=== PATIENT | male | born 1975 | race Caucasian/White ===

== ENCOUNTER 2017-09-11 05:33 | Emergency (ER) | payer MEDICAID ==
[2017-09-11] MEDS: HYDROCODONE/APAP (5/325) TAB PO (06:40)
== END 2017-09-11 08:11 | disposition home or self-care (01) ==
LOC: FTE 05:33
DX: M54.5 Low back pain (principal)
CPT/HCPCS: 72100; 99283-25

== ENCOUNTER 2019-03-05 07:00 | Emergency (ER) | payer MEDICAID ==
[2019-03-05] MEDS: FLUORESCEIN STRIP BOTH EYES (07:39)
[2019-03-05] MEDS: TETRACAINE 0.5% 4 ML OPH BOTH EYES (07:39)
[2019-03-05] MEDS: DIPHTH/TET/ACEL PERTUSS (ADULT) 0.5 ML VIAL IM* (09:06)
== END 2019-03-05 09:40 | disposition home or self-care (01) ==
LOC: FTE 07:00
DX: S05.02XA Injury of conjunctiva and corneal abrasion without foreign body, left eye, initial encounter (principal); X58.XXXA Exposure to other specified factors, initial encounter; Y92.89 Other specified places as the place of occurrence of the external cause; Z23 Encounter for immunization
CPT/HCPCS: 76536; 90471; 90715; 99284-25